=== PATIENT | male | born 1990 | race Caucasian/White ===

== ENCOUNTER 2023-08-24 15:53 | Outpatient (CLI) | payer OTHER, SELFPAY ==
[2023-08-24 16:24] LABS: Hematocrit 49.1 % (42.0-52.0); Hemoglobin 16.7 g/dL (14.0-18.0); Mean Corpuscular Hemoglobin 32.8 pg (26-34); Mean Corpuscular Volume 96.5 fl (80-100); Mean Platelet Volume 10.6 fl (7.4-10.4); Platelet Count Result 222 k/mm3 (150-375); Red Blood Count 5.09 M/mm3 (4.6-6.20); Red Cell Distribution Width 12.1 % (11.5-14.5)
[2023-08-24 16:38] LABS: Prothrombin Time 13.5 Seconds (11.1-14.7)
[2023-08-24 16:47] LABS: Alanine Aminotransferase 540 U/L (6-50); Albumin Level 5.1 g/dL (3.5-5.1); Alkaline Phosphatase 69 U/L (38-126); Amylase 73 U/L (30-110); Anion Gap 11 mmol/L (8-16); Aspartate Amino Transferase 392 U/L (17-59); Bilirubin,Total 0.9 mg/dL (0.2-1.3); Blood Urea Nitrogen 9 mg/dL (9-20); CRP < 0.5 mg/dL (<1.0); Calcium 9.6 mg/dL (8.4-10.2); Carbon Dioxide 30 mmol/L (22-30); Chloride 100 mmol/L (98-107); Estimated Glomerular Filt Rate > 60; Glucose 93 mg/dL (65-110); Lipase 40 U/L (23-300); Potassium 3.8 mmol/L (3.4-5.0); Sodium 141 mmol/L (137-145)
[2023-08-24 16:57] LABS: Erythrocyte Sedimentation Rate 1 mm/hr (0-20)
[2023-08-30 01:36] LABS: ALT 404 U/L (9-46); Alpha-2-Macroglobulin 193 mg/dL (106-279); Apolipoprotein A1 172 mg/dL (94-176); Fibrosis Score 0.31; Fibrosis Stage F1-F2; GGT 263 U/L (3-90); Haptoglobin 89 mg/dL (43-212); Necroinflammat Act Grade A3; Total Bilirubin 0.6 mg/dL (0.2-1.2)
[2023-08-30 10:16] LABS: Immunoglobulin A 107 mg/dL (47-310); TTG IGA AB <1.0 U/mL (<15.0)
== END 2023-08-24 15:54 | disposition home or self-care (01) ==
PROVIDERS: PCP Nurse Practitioner; Visit Provider Nurse Practitioner
DX: R10.813 Right lower quadrant abdominal tenderness (principal); R10.816 Epigastric abdominal tenderness; R14.0 Abdominal distension (gaseous); R19.4 Change in bowel habit; R63.0 Anorexia; R63.4 Abnormal weight loss; R93.3 Abnormal findings on diagnostic imaging of other parts of digestive tract
CPT/HCPCS: 36415; 80053; 81596; 82150; 82784; 83690; 84443; 85027; 85610; 85652; 86140; 86364

== ENCOUNTER 2023-08-30 07:54 | Outpatient (CLI) | payer OTHER, SELFPAY ==
--- NOTE | ~2023-08-30 | US_ITS ---
Limited Abdominal Sonogram: Real-time sonographic imaging of the right upper quadrant was performed. Clinical History: Abnormal LFTs Findings: The liver appears normal with no evidence of mass lesion or bile duct dilatation. Main por helen vein demonstrates normal direction of flow. The gallbladder is well distended, and appears normal with no evidence of gallstone or wall thickening. The common bile duct measures 4 mm. The visualize d pancreas, aorta, and IVC are unremarkable. Impression: No significant abnormality seen. Reviewed, dictated and finalized at location . GENETICIST Impression: No significant abnormality seen.
== END 2023-08-30 07:55 ==
LOC: GOSHIMG 07:55
PROVIDERS: PCP Nurse Practitioner; Visit Provider Nurse Practitioner
DX: R74.8 Abnormal levels of other serum enzymes (principal)
CPT/HCPCS: 76705

== ENCOUNTER 2023-08-30 08:07 | Outpatient (CLI) | payer OTHER, SELFPAY ==
[2023-08-30 17:17] LABS: Iron 218 ug/dL (49-181)
[2023-08-30 17:36] LABS: Percent Iron Saturation 48 % (20-50)
[2023-08-30 17:50] LABS: Hepatitis B Surface Antigen Negative (Negative)
[2023-08-30 17:56] LABS: HAV RESULT Negative (Negative); Hepatitis B Core IgM Result Negative (Negative)
[2023-08-30 17:57] LABS: Alanine Aminotransferase 270 U/L (6-50); Albumin Level 4.5 g/dL (3.5-5.1); Alkaline Phosphatase 61 U/L (38-126); Aspartate Amino Transferase 173 U/L (17-59); Bilirubin,Total 0.7 mg/dL (0.2-1.3)
[2023-08-30 17:59] LABS: HIV 1/2 Ab P24 Ag Result Negative (Negative)
[2023-08-30 18:15] LABS: Hepatitis B Surface Anti Res Positive; Hepatitis C Virus Antibody Negative (Negative)
[2023-09-01 12:22] LABS: Actin Antibody (IgG) <20 U (<20)
[2023-09-01 15:37] LABS: Hepatitis C Viral RNA PCR <15 IU/mL
[2023-09-02 05:39] LABS: LKM 1 Antibody <=20.0 U (<=20.0)
[2023-09-02 21:29] LABS: Mitochondrial (M2) Ab (IgG) <=20.0 U (<=20.0)
[2023-09-03 11:05] LABS: Hepatitis A Antibody Total Nonreactive (Nonreactive)
[2023-09-03 14:12] LABS: Anti Nuclear Antibody Titer 1:40 (Negative)
[2023-09-03 17:58] LABS: Alpha Fetoprotein Tumor Marker 3.3 ng/mL (<6.1)
[2023-09-04 10:09] LABS: Immunoglobulin A 103 mg/dL (47-310); TTG IGA AB <1.0 U/mL (<15.0)
[2023-09-06 15:27] LABS: ALT 211 U/L (9-46); Alpha-2-Macroglobulin 151 mg/dL (106-279); Apolipoprotein A1 159 mg/dL (94-176); Fibrosis Score 0.19; Fibrosis Stage F0; GGT 214 U/L (3-90); Haptoglobin 85 mg/dL (43-212); Necroinflammat Act Grade A3; Total Bilirubin 0.4 mg/dL (0.2-1.2)
[2023-09-08 10:23] LABS: Ceruloplasmin 32 mg/dL (18-36)
== END 2023-08-30 08:08 | disposition home or self-care (01) ==
PROVIDERS: PCP Nurse Practitioner; Visit Provider Nurse Practitioner
DX: R93.3 Abnormal findings on diagnostic imaging of other parts of digestive tract (principal); R63.4 Abnormal weight loss; R19.4 Change in bowel habit; R14.0 Abdominal distension (gaseous); R10.813 Right lower quadrant abdominal tenderness; R10.816 Epigastric abdominal tenderness; R63.0 Anorexia; F10.10 Alcohol abuse, uncomplicated; R79.89 Other specified abnormal findings of blood chemistry
CPT/HCPCS: 36415; 80074; 80076; 81596; 82104; 82105; 82390; 82728; 82784; 83520; 83540; 83550; 86038; 86039; 86364; 86376; 86703; 86706; 86708; 87522; 87902; G0432

== ENCOUNTER 2023-09-09 07:00 | Outpatient (NON) | payer OTHER, SELFPAY | END 2023-09-09 07:01 | disposition home or self-care (01) | PROVIDERS: PCP Nurse Practitioner; Visit Provider Internal Medicine Gastroenterology | DX: R19.4 Change in bowel habit (principal) | CPT/HCPCS: 88305 ==

== ENCOUNTER 2023-09-09 08:54 | Day surgery (SDC) | payer OTHER, SELFPAY ==
[2023-08-30 09:42] VITALS: BMI 27.7
[2023-08-30 14:45] VITALS: BMI 27.7
--- NOTE | 2023-09-09 10:33 | WPDANESEPPF ---
Anes - Initial Pre Proc Eval Procedure: Operation Date: 09/09/23 12:00 Proposed Procedures p Esophagogastroduodenoscopy - Devonte Vargas MD s Colonoscopy - Devonte Vargas MD Date/Time: 09/09/23 10:33 Surgeon: Devonte Vargas MD Pre Op Diagnosis: ABD Distension, Change in Bowel Habits Patient Data Age: 32 Gender: M Height: 1.88 m Weight: 98 kg Allergies Allergy/AdvReac Type Severity Reaction Status Date / Time No Known Allergies Allergy Verified 09/09/23 10:33 Home Medications Medication Instructions Recorded Confirmed Type diluent,naltrexone microsphere 1 ml IM MONTHLY 08/24/23 08/30/23 History divalproex 125 mg tablet,delayed 125 mg PO DAILY 08/24/23 09/09/23 History release famotidine 20 mg tablet 20 mg PO BID 08/24/23 09/09/23 History sertraline 50 mg tablet 50 mg PO DAILY 08/24/23 09/09/23 History lisinopril 5 mg tablet 10 mg PO DAILY 08/30/23 09/09/23 History Patient hx anesthesia problems: none Family hx anesthesia problems: none Results Review: All pre-operative results and documents have been reviewed as part of the pre-operative evaluation. [facility] Past Medical History Medical History Abdominal bloating Abnormal CT scan, colon Abnormal weight loss Altered bowel habits Chronic alcohol abuse Decreased appetite Elevated LFTs Epigastric abdominal tenderness RLQ abdominal tenderness Social History Social History Smoking status: Current every day smoker Smokeless tobacco user: chewing tobacco Alcohol intake: current Substance use: never Living arrangements: with family Occupation/Education: occupation Gender identity (if verbalized by the patient): Male Anes - Eval Final PreProcedure Day of Procedure 09/09/23 10:33 Patient weight: overweight Heart: regular rate and rhythm Lungs: clear to auscultation Airway: Mallampati scale class II Neurological: alert and oriented Last oral intake: >/= 8 hours ASA classification: III Emergent: no Anesthetic plan: proceed Anesthesia type and monitoring: general GIVS and standard monitoring Results Review: All pre-operative results and documents have been reviewed as part of the pre-operative evaluation. Informed Consent: The patient's anesthetic plan and its attendant risks and benefits were discussed with the patient/family/POA. Questions were solicited and answers provided to the satisfaction of the patient/family/POA.
[2023-09-09 10:40] VITALS: BMI 27.3
[2023-09-09 10:42] VITALS: BP 128/104; PULSE 58; RESP 18; TEMP 36.3; O2SAT 100
[2023-09-09] MEDS: LACTATED RINGERS 1,000 ML 150 ML IV CONT (10:56)
--- NOTE | 2023-09-09 11:01 | WPDHPUPDATE1 ---
History and Physical Update Update Date/Time: 09/09/23 11:01 History and Physical has been reviewed, including an updated exam of the patient. There are NO changes in the patient's condition. Risks, benefits, and alternatives have been discussed and questions answered. Patient agrees to proceed with procedure.
[2023-09-09 12:05] VITALS: BP 94/60; PULSE 66; RESP 20; O2SAT 99
--- NOTE | 2023-09-09 12:14 | WPDANESPN ---
Anes - Prog Note Post-Op Date/Time: 09/09/23 12:14 Cardiovascular status: normal Respiratory status: normal Airway patency: baseline Mental status: baseline Post-Op hydration status: normal Vital Signs: Last Vital Signs Temp 36.3 C L 09/09/23 10:42 Pulse 66 09/09/23 12:05 Resp 20 09/09/23 12:05 BP 94/60 L 09/09/23 12:05 Pulse Ox 99 09/09/23 12:05 O2 Del Method Room Air 09/09/23 12:05 Pain Score (VAS): 0/10 I/O: Intake & Output 09/08/23 09/09/23 09/09/23 23:59 07:59 15:59 Intake Total 600 Balance 600 Patient Feedback: Patient satisfied with anesthetic care.
[2023-09-09 12:15] VITALS: BP 100/86; PULSE 70; RESP 20; O2SAT 99
[2023-09-09 12:25] VITALS: BP 117/88; PULSE 72; RESP 20; O2SAT 99
== END 2023-09-09 12:41 | disposition home or self-care (01) ==
PROVIDERS: PCP Nurse Practitioner; Visit Provider Internal Medicine Gastroenterology
PROC: 0DJ08ZZ Inspection of Upper Intestinal Tract, Via Natural or Artificial Opening Endoscopic (ICD-10-PCS; CPT 43235; principal; 2023-09-09 12:00)
PROC: 0DJD8ZZ Inspection of Lower Intestinal Tract, Via Natural or Artificial Opening Endoscopic (ICD-10-PCS; CPT 45378; 2023-09-09 12:00)
DX: R14.0 Abdominal distension (gaseous) (principal); R19.4 Change in bowel habit; D12.2 Benign neoplasm of ascending colon; K64.8 Other hemorrhoids; R93.3 Abnormal findings on diagnostic imaging of other parts of digestive tract; K21.00 Gastro-esophageal reflux disease with esophagitis, without bleeding
CPT/HCPCS: 45385; 43239

== ENCOUNTER 2023-09-20 17:19 | Outpatient (CLI) | payer OTHER, SELFPAY | END 2023-09-20 17:20 | disposition home or self-care (01) | PROVIDERS: Nurse Practitioner Family; PCP Nurse Practitioner; Visit Provider Nurse Practitioner | DX: R79.89 Other specified abnormal findings of blood chemistry (principal); R89.9 Unspecified abnormal finding in specimens from other organs, systems and tissues | CPT/HCPCS: 36415; 81256 ==